=== PATIENT | female | born 1975 | race Caucasian/White ===

== ENCOUNTER 2019-01-07 14:00 | Emergency (ER) | payer OTHER, MEDICAID, SELFPAY ==
[2019-01-07 14:13] VITALS: BP 138/73; PULSE 93; RESP 18; TEMP 36.8; O2SAT 93; BMI 25.3
--- NOTE | 2019-01-07 14:15 | DI.CT.S_ITS ---
PROCEDURE: CT HEAD/BRAIN WO CON INDICATIONS: seizure x 2, seizure history, bruising forehead TECHNIQUE: Noncontrast 4.5 mm thick angled axial sections acquired from the foramen magnum to the vertex, with coronal and sagittal reformats. For radiation dose reduction, the following was used: automated exposure control, adjustment of mA and/or kV according to patient size. COMPARISON: None. FINDINGS: Image quality: Excellent. CSF spaces: Basal cisterns are patent. No extra-axial fluid collections. Ventricles are normal in size and shape. Brain: No midline shift. No intracranial masses or hemorrhage. Marie-white matter interface is normal. Skull and face: Calvarium and visualized facial bones are intact, without suspicious lesions. Sinuses: Visualized sinuses and mastoids are clear. IMPRESSION: No CT evidence of acute intracranial process. Dictated by: Rohini Hernandez M.D. on 01/07/2019 at 15:09 Approved by: Rohini Hernandez M.D. on 01/07/2019 at 15:13
--- NOTE | 2019-01-07 14:18 | ED.SEIZURE ---
HPI - Seizure <Fabiana Lloyd, DO - Last Filed: 01/07/19 16:07> General Chief Complaint: Seizure Stated Complaint: Seizure Time Seen by Provider: 01/07/19 14:14 Source: patient and family (daughter (age 25)) Mode of arrival: ambulatory Limitations: no limitations History of Present Illness HPI Narrative: This is a 43-year-old female comes to the emergency department with complaint of seizure. Patient states that she was weaning down her Keppra. Yesterday was her last dose. Plan was to stop completely because she has not had seizures in many years. Patient states she has not even see neurologist for several years. She started having seizures at the age of 16 they have not found any specific cause. Patient is following with Dr. Davila her primary care. She used to see Dr. Castillo in a [place] for her seizures but no longer sees him. Patient states she had 1 seizure at home earlier today that she felt coming on. They went to [employer] here in town, she was in the bathroom her daughter heard her yell and it took a moment to get the door unlocked patient was lying on the floor at that point. She has some bruising on her forehead and tongue from this morning from the 1st seizure. She is also complaining of some pain in her right shoulder. It hurts for to completely move her arm but she can move it through full range of motion. She is not having any pain in her neck currently. She feels sort of groggy. The patient did have urinary incontinence. She does not have any chest pain no shortness of breath, no nausea no vomiting no other GI symptoms. Patient states she does not have any other medical issues. Related Data Home Medications Medication Instructions Recorded Confirmed cholecalciferol (vitamin D3) 1 tab PO QDAY #0 10/13/17 11/30/18 [Vitamin D3] ferrous sulfate [Feosol] 325 mg PO #0 10/13/17 11/30/18 folic acid 0.4 mg PO QDAY #0 10/13/17 11/30/18 vit-iron fum-folic ac 1 cap PO QDAY #0 10/13/17 11/30/18 [Mynatal] Previous Rx's Medication Instructions Recorded levetiracetam [Keppra] 500 mg PO BID #30 tab 01/07/19 Allergies Allergy/AdvReac Type Severity Reaction Status Date / Time No Known Drug Allergies Allergy Verified 11/30/18 15:22 Review of Systems <Fabiana Lloyd DO - Last Filed: 01/07/19 16:07> Review of Systems ROS Unobtainable: All systems reviewed & are unremarkable except as noted in HPI and below Constitutional Denies chills, Denies fever(s), Denies lethargy, Denies weakness and Reports other (head injury) ENT Ears, Nose, Mouth, and Throat: Denies neck pain and Reports other (bit tongue, bruising) Cardiovascular Denies chest pain, Denies irregular heart rhythm, Denies lightheadedness, Denies palpitations, Denies dyspnea, Denies dyspnea on exertion and Denies orthopnea Respiratory Denies cough, Denies dyspnea, Denies dyspnea on exertion and Denies wheezing Gastrointestinal Gastrointestinal: Denies abdominal pain, Denies change in bowel habits, Denies fecal incontinence, Denies diarrhea, Denies nausea and Denies vomiting Genitourinary Denies hematuria, Denies dysuria, Denies flank pain, Reports urinary incontinence and Denies urinary urgency Musculoskeletal Reports as per HPI, Denies back pain, Reports arthralgias (right shoulder pain), Reports limited range of motion and Denies neck pain Integumentary/Breasts Denies rash and Denies unusual bruising Neurologic Reports as per HPI, Reports seizure-like activity (x2 today) and Denies weakness Endocrine Denies palpitations Allergic/Immunologic Denies wheezing PFSH <Fabiana Lloyd DO - Last Filed: 01/07/19 16:07> Medical History Seizures (Chronic) Surgical History Status post section (Resolved 08/18/17) Status post tubal ligation (Resolved 08/18/17) Family History Mother Morbid obesity Social History Smoking Status: Never smoker Family History Mother Morbid obesity Social History Smoking Status: Never smoker substance use type: does not use Exam <Fabiana Lloyd DO - Last Filed: 01/07/19 16:07> Narrative Exam Narrative: GEN: well nourished, well appearing female, alert and oriented x 3, patient appears to be in mild distress. Patient is very slightly groggy. She answers questions in their entirety without issue. HEENT: Patient has some mild ecchymosis on the anterior forehead, pupils are equal round reactive to light, extraocular movements are intact, nares are clear, TMs are clear with no fluid, there is no conjunctival pallor. Throat is clear without any exudates, erythema, tonsillar enlargement or uvular deviation, patient has some bruising but no open laceration on the right and and side of the tongue. HEART: Regular rate and rhythm without murmur, clicks, rubs. No carotid bruits, pulses are equal in upper and lower extremities LUNGS:Lungs clear to auscultation, no wheezes, rales, crackles, chest moves symmetrically ABD:bowel sounds normal, soft, non-tender, no guarding, rebound, rigidity, no masses noted, no hepatosplenomegaly :No CVA tenderness MSCL: Non-tender, no muscle atrophy, muscles strength 5/5 upper and lower extremities, full range of motion, gait not tested at this time. NEURO:CN 2-12 intact, sensation normal, reflexes 2/4 upper and lower extremities. Initial Vital Signs Initial Vital Signs: Vital Signs Temperature 98.2 F 01/07/19 14:13 Pulse Rate 93 H 01/07/19 14:13 Respiratory Rate 18 01/07/19 14:13 Blood Pressure 138/73 01/07/19 14:13 Pulse Oximetry 93 01/07/19 14:13 <Huey Faulkner DO - Last Filed: 01/07/19 19:41> Initial Vital Signs Initial Vital Signs: Vital Signs Temperature 98.2 F 01/07/19 14:13 Pulse Rate 93 H 01/07/19 14:13 Respiratory Rate 18 01/07/19 14:13 Blood Pressure 138/73 01/07/19 14:13 Pulse Oximetry 93 01/07/19 14:13 Scores <Fabiana Lloyd DO - Last Filed: 01/07/19 16:07> GCS [place] coma scale eye opening: Spontaneous [place] coma scale verbal response: Orientated [place] coma scale motor response: Obey commands [place] coma scale total score: 15 Course <Faibana Lloyd DO - Last Filed: 01/07/19 16:07> Orders Ordered: ED Orders 01/07/19 14:15 CT head/brain wo con Stat 01/07/19 14:40 XR shoulder RT min 2V Stat 01/07/19 15:15 Basic Metabolic Panel Stat Complete Blood Count AUTO DIFF Stat Ethanol (ETOH) Stat Magnesium Stat Prolactin Stat Discontinued Medications Sodium Chloride (Normal Saline 0.9%) 1,000 mls @ 1,000 mls/hr IV BOLUS ONE Stop: 01/07/19 15:13 Last Infusion: 01/07/19 16:08 Dose: 0 mls/hr Admin: 01/07/19 15:09 Dose: 1,000 mls/hr Levetiracetam 1,500 mg/ Sodium (Chloride) 115 mls @ 460 mls/hr IV NOW ONE Stop: 01/07/19 14:15 Last Infusion: 01/07/19 15:35 Dose: 0 mls/hr Admin: 01/07/19 15:08 Dose: 460 mls/hr Ondansetron HCl (Zofran) 4 mg IV NOW ONE Stop: 01/07/19 15:35 Last Admin: 01/07/19 15:35 Dose: 4 mg Ondansetron HCl (Zofran) 4 mg IV NOW ONE Stop: 01/07/19 15:35 Last Admin: 01/07/19 15:44 Dose: Not Given Vital Signs - 8 hr 01/07/19 14:13 01/07/19 15:25 01/07/19 16:32 Temperature 98.2 F Pulse Rate 93 H 82 77 Respiratory Rate 18 16 14 Blood Pressure 138/73 Blood Pressure [Right Arm] 120/68 114/60 Pulse Oximetry 93 97 95 01/07/19 17:12 Temperature Pulse Rate 84 Respiratory Rate 14 Blood Pressure 114/60 Blood Pressure [Right Arm] Pulse Oximetry 96 <Huey Faulkner, DO - Last Filed: 01/07/19 19:41> Orders Ordered: ED Orders 01/07/19 14:15 CT head/brain wo con Stat 01/07/19 14:40 XR shoulder RT min 2V Stat 01/07/19 15:15 Basic Metabolic Panel Stat Complete Blood Count AUTO DIFF Stat Ethanol (ETOH) Stat Magnesium Stat Prolactin Stat Discontinued Medications Sodium Chloride (Normal Saline 0.9%) 1,000 mls @ 1,000 mls/hr IV BOLUS ONE Stop: 01/07/19 15:13 Last Infusion: 01/07/19 16:08 Dose: 0 mls/hr Admin: 01/07/19 15:09 Dose: 1,000 mls/hr Levetiracetam 1,500 mg/ Sodium (Chloride) 115 mls @ 460 mls/hr IV NOW ONE Stop: 01/07/19 14:15 Last Infusion: 01/07/19 15:35 Dose: 0 mls/hr Admin: 01/07/19 15:08 Dose: 460 mls/hr Ondansetron HCl (Zofran) 4 mg IV NOW ONE Stop: 01/07/19 15:35 Last Admin: 01/07/19 15:35 Dose: 4 mg Ondansetron HCl (Zofran) 4 mg IV NOW ONE Stop: 01/07/19 15:35 Last Admin: 01/07/19 15:44 Dose: Not Given Vital Signs - 8 hr 01/07/19 14:13 01/07/19 15:25 01/07/19 16:32 Temperature 98.2 F Pulse Rate 93 H 82 77 Respiratory Rate 18 16 14 Blood Pressure 138/73 Blood Pressure [Right Arm] 120/68 114/60 Pulse Oximetry 93 97 95 01/07/19 17:12 Temperature Pulse Rate 84 Respiratory Rate 14 Blood Pressure 114/60 Blood Pressure [Right Arm] Pulse Oximetry 96 MDM - Seizure <Fabiana Lloyd, - Last Filed: 01/07/19 16:07> Lab Data Result diagrams: 01/07/19 15:15 01/07/19 15:15 Lab Results 01/07/19 01/07/19 01/07/19 Range/Units 15:15 15:15 15:15 WBC 13.8 H (4.5-11.0) X10^3/uL RBC 4.24 (4.0-5.2) X10^6/uL Hgb 13.1 (12.0-16.0) g/dL Hct 39.6 (36-46) % MCV 93.6 (80-100) fL MCH 30.9 (26-34) PG MCHC 33.0 (30-36) % RDW 13.4 (11.6-14.8) % Plt Count 292 (150-400) X10^3/uL Neut % (Auto) 88.4 H (50-75) % Lymph % (Auto) 6.4 L (25-40) % [place] % (Auto) 4.6 (3-14) % Eos % (Auto) 0.1 L (2-4) % Baso % (Auto) 0.5 (0-2) % Neut # (Auto) 51745 H (8598-2704) /uL Lymph # (Auto) 900 L (1292-2031) /uL [place] # (Auto) 600 (0-900) /uL Eos # (Auto) 0 (0-450) /uL Baso # (Auto) 100 (0-100) /uL Sodium 138 (137-145) mmol/L Potassium 4.3 (3.4-5.1) mmol/L Chloride 105 (98-107) mmol/L Carbon Dioxide 23 (22-32) mmol/L BUN 13 (7-17) mg/dL Creatinine 0.80 (0.52-1.04) mg/dL Estimated GFR > 60.0 (>60) mL/min BUN/Creatinine Ratio 16.3 (6-22) Glucose 117 H (70-100) mg/dL Calcium 8.8 (8.4-10.2) mg/dL Magnesium 2.0 (1.6-2.3) mg/dL Prolactin 36.4 H (3.0-18.6) ng/mL Ethyl Alcohol < 10 mg/dL MDM Narrative Medical decision making narrative: Patient had 2 episodes of seizure activity here. She did not take any Keppra today as she has stopped her Keppra in the last 24 hr. Plan to load her with Keppra here in the emergency department 1500 mg. Patient on seizure precautions. She does have multiple bruises on her forehead so will do a CT of her head at this time as well as basic lab work. Patient labs pending, patient has not had further seizures in the department at this time. Patient signed out to Dr. Faulkner for final disposition while awaiting lab work. <Huey Faulkner DO - Last Filed: 01/07/19 19:41> Lab Data Lab Results 01/07/19 01/07/19 01/07/19 Range/Units 15:15 15:15 15:15 WBC 13.8 H (4.5-11.0) X10^3/uL RBC 4.24 (4.0-5.2) X10^6/uL Hgb 13.1 (12.0-16.0) g/dL Hct 39.6 (36-46) % MCV 93.6 (80-100) fL MCH 30.9 (26-34) PG MCHC 33.0 (30-36) % RDW 13.4 (11.6-14.8) % Plt Count 292 (150-400) X10^3/uL Neut % (Auto) 88.4 H (50-75) % Lymph % (Auto) 6.4 L (25-40) % [place] % (Auto) 4.6 (3-14) % Eos % (Auto) 0.1 L (2-4) % Baso % (Auto) 0.5 (0-2) % Neut # (Auto) 10639 H (9743-0506) /uL Lymph # (Auto) 900 L (7194-0284) /uL [place] # (Auto) 600 (0-900) /uL Eos # (Auto) 0 (0-450) /uL Baso # (Auto) 100 (0-100) /uL Sodium 138 (137-145) mmol/L Potassium 4.3 (3.4-5.1) mmol/L Chloride 105 (98-107) mmol/L Carbon Dioxide 23 (22-32) mmol/L BUN 13 (7-17) mg/dL Creatinine 0.80 (0.52-1.04) mg/dL Estimated GFR > 60.0 (>60) mL/min BUN/Creatinine Ratio 16.3 (6-22) Glucose 117 H (70-100) mg/dL Calcium 8.8 (8.4-10.2) mg/dL Magnesium 2.0 (1.6-2.3) mg/dL Prolactin 36.4 H (3.0-18.6) ng/mL Ethyl Alcohol < 10 mg/dL Discharge Plan Departure Patient Disposition: Home Clinical Impression: Seizure Discharge Date/Time: 01/07/19 17:13 Interventions: ED Discharge Assessment Last Done: 01/07/19 17:12 Instructions: DI for Seizure Disorder -- Adult Activity Restrictions/Additional Instructions: *You have been diagnosed with [ seizure ] *What to do: *Take medications as directed: Please resume your most recent dosing regimen, your prescription has been electronically transmitted to [facility] at your request *Follow up with your primary care provider in 2-3 days, call for an appointment. Let them know you were seen in the Emergency Department and that we ask that you be seen in follow up *Return to ER if you should have any new, worsening or concerning symptoms Prescriptions: New levetiracetam [Keppra] 500 mg tablet 500 mg PO BID Qty: 30 RF: 0 No Action folic acid 0.4 MG tablet 0.4 mg PO QDAY Qty: 0 RF: 0 ferrous sulfate [Feosol] 325 MG tablet 325 mg PO Qty: 0 RF: 0 vit-iron fum-folic ac [Mynatal] 1 EACH capsule 1 cap PO QDAY Qty: 0 RF: 0 cholecalciferol (vitamin D3) [Vitamin D3] 2,000 UNIT tablet 1 tab PO QDAY Qty: 0 RF: 0 Referrals: Yariel Abraham MD [Primary Care Provider] -
--- NOTE | 2019-01-07 14:26 | ED_ITS ---
HPI - Seizure <Fabiana Lloyd, DO - Last Filed: 01/07/19 16:07> General Chief Complaint: Seizure Stated Complaint: Seizure Time Seen by Provider: 01/07/19 14:14 Source: patient and family (daughter (age 25)) Mode of arrival: ambulatory Limitations: no limitations History of Present Illness HPI Narrative: This is a 43-year-old female comes to the emergency department with complaint of seizure. Patient states that she was weaning down her Keppra. Yesterday was her last dose. Plan was to stop completely because she has not had seizures in many years. Patient states she has not even see neurologist for several years. She started having seizures at the age of 16 they have not found any specific cause. Patient is following with Dr. Davila her primary care. She used to see Dr. Castillo in a [place] for her seizures but no longer sees him. Patient states she had 1 seizure at home earlier today that she felt coming on. They went to [employer] here in town, she was in the bathroom her daughter heard her yell and it took a moment to get the door unlocked patient was lying on the floor at that point. She has some bruising on her forehead and tongue from this morning from the 1st seizure. She is also complaining of some pain in her right shoulder. It hurts for to completely move her arm but she can move it through full range of motion. She is not having any pain in her neck currently. She feels sort of groggy. The patient did have urinary incontinence. She does not have any chest pain no shortness of breath, no nausea no vomiting no other GI symptoms. Patient states she does not have any other medical issues. Related Data Home Medications Medication Instructions Recorded Confirmed cholecalciferol (vitamin D3) 1 tab PO QDAY #0 10/13/17 11/30/18 [Vitamin D3] ferrous sulfate [Feosol] 325 mg PO #0 10/13/17 11/30/18 folic acid 0.4 mg PO QDAY #0 10/13/17 11/30/18 vit-iron fum-folic ac 1 cap PO QDAY #0 10/13/17 11/30/18 [Mynatal] Previous Rx's Medication Instructions Recorded levetiracetam [Keppra] 500 mg PO BID #30 tab 01/07/19 Allergies Allergy/AdvReac Type Severity Reaction Status Date / Time No Known Drug Allergies Allergy Verified 11/30/18 15:22 Review of Systems <Fabiana Lloyd DO - Last Filed: 01/07/19 16:07> Review of Systems ROS Unobtainable: All systems reviewed & are unremarkable except as noted in HPI and below Constitutional Denies chills, Denies fever(s), Denies lethargy, Denies weakness and Reports other (head injury) ENT Ears, Nose, Mouth, and Throat: Denies neck pain and Reports other (bit tongue, bruising) Cardiovascular Denies chest pain, Denies irregular heart rhythm, Denies lightheadedness, Denies palpitations, Denies dyspnea, Denies dyspnea on exertion and Denies orthopnea Respiratory Denies cough, Denies dyspnea, Denies dyspnea on exertion and Denies wheezing Gastrointestinal Gastrointestinal: Denies abdominal pain, Denies change in bowel habits, Denies fecal incontinence, Denies diarrhea, Denies nausea and Denies vomiting Genitourinary Denies hematuria, Denies dysuria, Denies flank pain, Reports urinary incontinence and Denies urinary urgency Musculoskeletal Reports as per HPI, Denies back pain, Reports arthralgias (right shoulder pain), Reports limited range of motion and Denies neck pain Integumentary/Breasts Denies rash and Denies unusual bruising Neurologic Reports as per HPI, Reports seizure-like activity (x2 today) and Denies weakness Endocrine Denies palpitations Allergic/Immunologic Denies wheezing PFSH <Fabiana Lloyd DO - Last Filed: 01/07/19 16:07> Medical History Seizures (Chronic) Surgical History Status post section (Resolved 08/18/17) Status post tubal ligation (Resolved 08/18/17) Family History Mother Morbid obesity Social History Smoking Status: Never smoker Family History Mother Morbid obesity Social History Smoking Status: Never smoker substance use type: does not use Exam <Fabiana Lloyd DO - Last Filed: 01/07/19 16:07> Narrative Exam Narrative: GEN: well nourished, well appearing female, alert and oriented x 3, patient appears to be in mild distress. Patient is very slightly groggy. She answers questions in their entirety without issue. HEENT: Patient has some mild ecchymosis on the anterior forehead, pupils are equal round reactive to light, extraocular movements are intact, nares are clear, TMs are clear with no fluid, there is no conjunctival pallor. Throat is clear without any exudates, erythema, tonsillar enlargement or uvular deviation, patient has some bruising but no open laceration on the right and and side of the tongue. HEART: Regular rate and rhythm without murmur, clicks, rubs. No carotid bruits, pulses are equal in upper and lower extremities LUNGS:Lungs clear to auscultation, no wheezes, rales, crackles, chest moves symmetrically ABD:bowel sounds normal, soft, non-tender, no guarding, rebound, rigidity, no masses noted, no hepatosplenomegaly :No CVA tenderness MSCL: Non-tender, no muscle atrophy, muscles strength 5/5 upper and lower extremities, full range of motion, gait not tested at this time. NEURO:CN 2-12 intact, sensation normal, reflexes 2/4 upper and lower extremities. Initial Vital Signs Initial Vital Signs: Vital Signs Temperature 98.2 F 01/07/19 14:13 Pulse Rate 93 H 01/07/19 14:13 Respiratory Rate 18 01/07/19 14:13 Blood Pressure 138/73 01/07/19 14:13 Pulse Oximetry 93 01/07/19 14:13 <Huey Faulkner DO - Last Filed: 01/07/19 19:41> Initial Vital Signs Initial Vital Signs: Vital Signs Temperature 98.2 F 01/07/19 14:13 Pulse Rate 93 H 01/07/19 14:13 Respiratory Rate 18 01/07/19 14:13 Blood Pressure 138/73 01/07/19 14:13 Pulse Oximetry 93 01/07/19 14:13 Scores <Fabiana Lloyd DO - Last Filed: 01/07/19 16:07> GCS [place] coma scale eye opening: Spontaneous [place] coma scale verbal response: Orientated [place] coma scale motor response: Obey commands [place] coma scale total score: 15 Course <Fabiana Lloyd DO - Last Filed: 01/07/19 16:07> Orders Ordered: ED Orders 01/07/19 14:15 CT head/brain wo con Stat 01/07/19 14:40 XR shoulder RT min 2V Stat 01/07/19 15:15 Basic Metabolic Panel Stat Complete Blood Count AUTO DIFF Stat Ethanol (ETOH) Stat Magnesium Stat Prolactin Stat Discontinued Medications Sodium Chloride (Normal Saline 0.9%) 1,000 mls @ 1,000 mls/hr IV BOLUS ONE Stop: 01/07/19 15:13 Last Infusion: 01/07/19 16:08 Dose: 0 mls/hr Admin: 01/07/19 15:09 Dose: 1,000 mls/hr Levetiracetam 1,500 mg/ Sodium (Chloride) 115 mls @ 460 mls/hr IV NOW ONE Stop: 01/07/19 14:15 Last Infusion: 01/07/19 15:35 Dose: 0 mls/hr Admin: 01/07/19 15:08 Dose: 460 mls/hr Ondansetron HCl (Zofran) 4 mg IV NOW ONE Stop: 01/07/19 15:35 Last Admin: 01/07/19 15:35 Dose: 4 mg Ondansetron HCl (Zofran) 4 mg IV NOW ONE Stop: 01/07/19 15:35 Last Admin: 01/07/19 15:44 Dose: Not Given Vital Signs - 8 hr 01/07/19 14:13 01/07/19 15:25 01/07/19 16:32 Temperature 98.2 F Pulse Rate 93 H 82 77 Respiratory Rate 18 16 14 Blood Pressure 138/73 Blood Pressure [Right Arm] 120/68 114/60 Pulse Oximetry 93 97 95 01/07/19 17:12 Temperature Pulse Rate 84 Respiratory Rate 14 Blood Pressure 114/60 Blood Pressure [Right Arm] Pulse Oximetry 96 <Huey Faulkner, DO - Last Filed: 01/07/19 19:41> Orders Ordered: ED Orders 01/07/19 14:15 CT head/brain wo con Stat 01/07/19 14:40 XR shoulder RT min 2V Stat 01/07/19 15:15 Basic Metabolic Panel Stat Complete Blood Count AUTO DIFF Stat Ethanol (ETOH) Stat Magnesium Stat Prolactin Stat Discontinued Medications Sodium Chloride (Normal Saline 0.9%) 1,000 mls @ 1,000 mls/hr IV BOLUS ONE Stop: 01/07/19 15:13 Last Infusion: 01/07/19 16:08 Dose: 0 mls/hr Admin: 01/07/19 15:09 Dose: 1,000 mls/hr Levetiracetam 1,500 mg/ Sodium (Chloride) 115 mls @ 460 mls/hr IV NOW ONE Stop: 01/07/19 14:15 Last Infusion: 01/07/19 15:35 Dose: 0 mls/hr Admin: 01/07/19 15:08 Dose: 460 mls/hr Ondansetron HCl (Zofran) 4 mg IV NOW ONE Stop: 01/07/19 15:35 Last Admin: 01/07/19 15:35 Dose: 4 mg Ondansetron HCl (Zofran) 4 mg IV NOW ONE Stop: 01/07/19 15:35 Last Admin: 01/07/19 15:44 Dose: Not Given Vital Signs - 8 hr 01/07/19 14:13 01/07/19 15:25 01/07/19 16:32 Temperature 98.2 F Pulse Rate 93 H 82 77 Respiratory Rate 18 16 14 Blood Pressure 138/73 Blood Pressure [Right Arm] 120/68 114/60 Pulse Oximetry 93 97 95 01/07/19 17:12 Temperature Pulse Rate 84 Respiratory Rate 14 Blood Pressure 114/60 Blood Pressure [Right Arm] Pulse Oximetry 96 MDM - Seizure <Fabiana Lloyd, - Last Filed: 01/07/19 16:07> Lab Data Result diagrams: 01/07/19 15:15 01/07/19 15:15 Lab Results 01/07/19 01/07/19 01/07/19 Range/Units 15:15 15:15 15:15 WBC 13.8 H (4.5-11.0) X10^3/uL RBC 4.24 (4.0-5.2) X10^6/uL Hgb 13.1 (12.0-16.0) g/dL Hct 39.6 (36-46) % MCV 93.6 (80-100) fL MCH 30.9 (26-34) PG MCHC 33.0 (30-36) % RDW 13.4 (11.6-14.8) % Plt Count 292 (150-400) X10^3/uL Neut % (Auto) 88.4 H (50-75) % Lymph % (Auto) 6.4 L (25-40) % [place] % (Auto) 4.6 (3-14) % Eos % (Auto) 0.1 L (2-4) % Baso % (Auto) 0.5 (0-2) % Neut # (Auto) 82347 H (2011-6111) /uL Lymph # (Auto) 900 L (0645-0213) /uL [place] # (Auto) 600 (0-900) /uL Eos # (Auto) 0 (0-450) /uL Baso # (Auto) 100 (0-100) /uL Sodium 138 (137-145) mmol/L Potassium 4.3 (3.4-5.1) mmol/L Chloride 105 (98-107) mmol/L Carbon Dioxide 23 (22-32) mmol/L BUN 13 (7-17) mg/dL Creatinine 0.80 (0.52-1.04) mg/dL Estimated GFR > 60.0 (>60) mL/min BUN/Creatinine Ratio 16.3 (6-22) Glucose 117 H (70-100) mg/dL Calcium 8.8 (8.4-10.2) mg/dL Magnesium 2.0 (1.6-2.3) mg/dL Prolactin 36.4 H (3.0-18.6) ng/mL Ethyl Alcohol < 10 mg/dL MDM Narrative Medical decision making narrative: Patient had 2 episodes of seizure activity here. She did not take any Keppra today as she has stopped her Keppra in the last 24 hr. Plan to load her with Keppra here in the emergency department 1500 mg. Patient on seizure precautions. She does have multiple bruises on her forehead so will do a CT of her head at this time as well as basic lab work. Patient labs pending, patient has not had further seizures in the department at this time. Patient signed out to Dr. Faulkner for final disposition while awaiting lab work. <Huey Faulkner DO - Last Filed: 01/07/19 19:41> Lab Data Lab Results 01/07/19 01/07/19 01/07/19 Range/Units 15:15 15:15 15:15 WBC 13.8 H (4.5-11.0) X10^3/uL RBC 4.24 (4.0-5.2) X10^6/uL Hgb 13.1 (12.0-16.0) g/dL Hct 39.6 (36-46) % MCV 93.6 (80-100) fL MCH 30.9 (26-34) PG MCHC 33.0 (30-36) % RDW 13.4 (11.6-14.8) % Plt Count 292 (150-400) X10^3/uL Neut % (Auto) 88.4 H (50-75) % Lymph % (Auto) 6.4 L (25-40) % [place] % (Auto) 4.6 (3-14) % Eos % (Auto) 0.1 L (2-4) % Baso % (Auto) 0.5 (0-2) % Neut # (Auto) 03066 H (0843-9414) /uL Lymph # (Auto) 900 L (4351-4391) /uL [place] # (Auto) 600 (0-900) /uL Eos # (Auto) 0 (0-450) /uL Baso # (Auto) 100 (0-100) /uL Sodium 138 (137-145) mmol/L Potassium 4.3 (3.4-5.1) mmol/L Chloride 105 (98-107) mmol/L Carbon Dioxide 23 (22-32) mmol/L BUN 13 (7-17) mg/dL Creatinine 0.80 (0.52-1.04) mg/dL Estimated GFR > 60.0 (>60) mL/min BUN/Creatinine Ratio 16.3 (6-22) Glucose 117 H (70-100) mg/dL Calcium 8.8 (8.4-10.2) mg/dL Magnesium 2.0 (1.6-2.3) mg/dL Prolactin 36.4 H (3.0-18.6) ng/mL Ethyl Alcohol < 10 mg/dL Discharge Plan Departure Patient Disposition: Home Clinical Impression: Seizure Discharge Date/Time: 01/07/19 17:13 Interventions: ED Discharge Assessment Last Done: 01/07/19 17:12 Instructions: DI for Seizure Disorder -- Adult Activity Restrictions/Additional Instructions: *You have been diagnosed with [ seizure ] *What to do: *Take medications as directed: Please resume your most recent dosing regimen, your prescription has been electronically transmitted to [facility] at your request *Follow up with your primary care provider in 2-3 days, call for an appointment. Let them know you were seen in the Emergency Department and that we ask that you be seen in follow up *Return to ER if you should have any new, worsening or concerning symptoms Prescriptions: New levetiracetam [Keppra] 500 mg tablet 500 mg PO BID Qty: 30 RF: 0 No Action folic acid 0.4 MG tablet 0.4 mg PO QDAY Qty: 0 RF: 0 ferrous sulfate [Feosol] 325 MG tablet 325 mg PO Qty: 0 RF: 0 vit-iron fum-folic ac [Mynatal] 1 EACH capsule 1 cap PO QDAY Qty: 0 RF: 0 cholecalciferol (vitamin D3) [Vitamin D3] 2,000 UNIT tablet 1 tab PO QDAY Qty: 0 RF: 0 Referrals: Yariel Abraham MD [Primary Care Provider] -
--- NOTE | 2019-01-07 14:40 | DI.RAD.S_ITS ---
PROCEDURE: XR SHOULDER RT MIN 2V INDICATIONS: injury, pain TECHNIQUE: 3 views of the shoulder were acquired. COMPARISON: None. FINDINGS: Bones: No fractures or dislocations. No suspicious bony lesions. Visualized ribs appear intact. Soft tissues: No suspicious soft tissue calcifications. IMPRESSION: Intact right shoulder Dictated by: Rohini Hernandez M.D. on 01/07/2019 at 15:15 Approved by: Rohini Hernandez M.D. on 01/07/2019 at 15:16
[2019-01-07] MEDS: levETIRAcetam 1,500 MG in SODIUM CHLORIDE 0.9% 100 ML 460 ML IV (15:08)
[2019-01-07] MEDS: SODIUM CHLORIDE 0.9% 1,000 ML 1000 ML IV (15:09)
[2019-01-07 15:25] VITALS: BP 120/68; PULSE 82; RESP 16; O2SAT 97
[2019-01-07 15:33] LABS: Add Manual Diff / Slide Review NO; Basophils Absolute Auto 100 /uL (0-100); Basophils Percent Auto 0.5 % (0-2); Eosinophils Absolute Auto 0 /uL (0-450); Eosinophils Percent Auto 0.1 % (2-4); Hematocrit 39.6 % (36-46); Hemoglobin 13.1 g/dL (12.0-16.0); Lymphocytes Absolute Auto 900 /uL (1100-4500); Lymphocytes Percent Auto 6.4 % (25-40); Mean Corpuscular Hemoglobin 30.9 PG (26-34); Mean Corpuscular Volume 93.6 fL (80-100); Monocytes Absolute Auto 600 /uL (0-900); Monocytes Percent Auto 4.6 % (3-14); Neutrophils Absolute Auto 12200 /uL (1500-7000); Neutrophils Percent Auto 88.4 % (50-75); Platelet Count 292 X10^3/uL (150-400); Red Blood Cell Count 4.24 X10^6/uL (4.0-5.2); Red Cell Distribution Width 13.4 % (11.6-14.8); White Blood Cell Count 13.8 X10^3/uL (4.5-11.0)
[2019-01-07 15:34] LABS: Ethanol (ETOH) < 10 mg/dL
[2019-01-07 15:35] LABS: BUN Creatinine Ratio 16.3 (6-22); Blood Urea Nitrogen 13 mg/dL (7-17); Calcium 8.8 mg/dL (8.4-10.2); Carbon Dioxide 23 mmol/L (22-32); Chloride 105 mmol/L (98-107); Estimated Glomerular Filt Rate > 60.0 mL/min (>60); Glucose 117 mg/dL (70-100); HEMOLYSIS < 15 (0-50); Potassium 4.3 mmol/L (3.4-5.1); Sodium 138 mmol/L (137-145)
[2019-01-07] MEDS: ONDANSETRON 4 MG/2 ML INJ IV (15:35)
[2019-01-07 15:52] LABS: Prolactin 36.4 ng/mL (3.0-18.6)
--- NOTE | 2019-01-07 15:53 | PC.NURSE ---
States nausea has improved. Informed of keppra amount infused as asked
[2019-01-07 16:32] VITALS: BP 114/60; PULSE 77; RESP 14; O2SAT 95
[2019-01-07 17:12] VITALS: BP 114/60; PULSE 84; RESP 14; O2SAT 96
== END 2019-01-07 17:13 | disposition home or self-care (01) ==
PROVIDERS: Emergency Medicine; Emergency Provider Emergency Medicine; PCP Student in an Organized Health Care Education/Training Program
DX: R56.9 Unspecified convulsions (principal)
CPT/HCPCS: 36415; 70450; 73030; 80048; 80320; 83735; 84146; 85025; 96361; 96365; 96375; 99284; J1953; J2405

== ENCOUNTER → 2020-04-19 17:34 | Outpatient (CLI) | payer OTHER, MEDICAID, SELFPAY ==
--- NOTE | 2020-04-19 | DI.MRI.S_ITS ---
PROCEDURE: MR ANKLE RT WO CON INDICATIONS: Pain in right foot TECHNIQUE: Noncontrast sagittal T1 spin echo and T2 fast spin echo with fat saturation, axial proton density fast spin echo and T2 fast spin echo with fat saturation, coronal T1 spin echo and T2 fast spin echo with fat saturation through the ankle/hindfoot. COMPARISON: None. FINDINGS: Image quality: Excellent. Bones and joints: No fracture or dislocation. No hindfoot coalitions. No osteochondral injuries of the talar dome. No pathologic joint effusions. Well-defined plantar calcaneal enthesophyte is seen. Mild edema is noted involving plantar calcaneus at plantar aponeurosis insertion. No fracture line is noted. No cortical disruption. Medial structures: The posterior tibialis, flexor digitorum longus, and flexor hallucis longus tendons are intact. The posterior tibial neurovascular bundle appears normal within the tarsal tunnel, without extrinsic mass effect. The deep layer (anterior and posterior tibiotalar ligaments) and superficial layer (tibionavicular, tibiospring, and tibiocalcaneal ligaments) of the deltoid ligament appear normal. The spring ligament components (superomedial calcaneonavicular, medioplantar oblique calcaneonavicular, and inferoplantar longitudinal ligaments) are intact. Lateral structures: The anterior talofibular, calcaneofibular, and posterior talofibular ligaments appear intact. More superiorly, the anterior and posterior tibiofibular ligaments appear intact, as is the intermalleolar ligament. The tibiofibular syndesmosis is normal in width at 2 mm or less. The peroneus longus and brevis tendons demonstrate normal location and morphology. Adjacent bony peroneal tubercle and retrotrochlear prominence are normal in size. The sinus tarsi demonstrates normal fatty signal, without edema, fibrosis, or cyst formation. Visualized sinus tarsi components (cervical ligament, interosseous talocalcaneal ligament, roots of the inferior extensor retinaculum) appear normal. The calcaneonavicular and calcaneocuboid components of the bifurcate ligament appear intact. The dorsal calcaneocuboid ligament appears intact. Anterior structures: The tibialis anterior, extensor hallucis longus, and extensor digitorum longus tendons appear intact. The dorsal talonavicular ligament appears intact. Posterior and plantar structures: Achilles tendon is intact. Medial and lateral bands of the plantar fascia are of taken at their insertions on plantar calcaneus suggestive of low to moderate grade plantar fasciitis. No full-thickness plantar fascial rupture. No abductor digiti quinti muscle atrophy to suggest Jackson neuropathy. IMPRESSION: 1. Well-defined plantar calcaneal enthesophyte with mild edema in plantar calcaneus and again the plantar fascia at its calcaneal insertion with mild surrounding soft tissue edema. Finding is suggestive of multiple moderately plantar fasciitis. 2. Rest of ankle tendons and ligaments are intact. 3. No other area of abnormal marrow signal. No fracture or dislocation. Dictated by: Dimitri Osborn M.D. on 04/22/2020 at 8:25 Approved by: Dimitri Obsorn M.D. on 04/22/2020 at 8:38
== END ==
PROVIDERS: PCP Family Medicine; Referring Provider Orthopaedic Surgery Foot and Ankle Surgery; Visit Provider Orthopaedic Surgery Foot and Ankle Surgery
DX: M79.671 Pain in right foot (principal); M77.31 Calcaneal spur, right foot
CPT/HCPCS: 73721

== ENCOUNTER → 2020-07-16 10:34 | Outpatient (CLI) | payer OTHER, MEDICAID, SELFPAY ==
[2020-07-16 11:50] LABS: Add Manual Diff / Slide Review NO; Basophils Absolute Auto 0 /uL (0-100); Basophils Percent Auto 0.5 % (0-2); Eosinophils Absolute Auto 100 /uL (0-450); Eosinophils Percent Auto 1.5 % (2-4); Hematocrit 33.9 % (36-46); Hemoglobin 11.2 g/dL (12.0-16.0); Lymphocytes Absolute Auto 2200 /uL (1100-4500); Mean Corpuscular Hemoglobin 28.1 PG (26-34); Mean Corpuscular Volume 84.9 fL (80-100); Monocytes Absolute Auto 600 /uL (0-900); Monocytes Percent Auto 6.6 % (3-14); Neutrophils Absolute Auto 5600 /uL (1500-7000); Neutrophils Percent Auto 65.4 % (50-75); Platelet Count 330 X10^3/uL (150-400); Red Blood Cell Count 3.99 X10^6/uL (4.0-5.2); Red Cell Distribution Width 16.2 % (11.6-14.8); White Blood Cell Count 8.6 X10^3/uL (4.5-11.0)
[2020-07-16 12:33] LABS: Follicle Stimulating Hormone 1.45 mIU/mL
[2020-07-16 12:38] LABS: Free T4, Direct Thyroxine 0.64 ng/dL (0.78-2.19)
[2020-07-16 12:52] LABS: Thyroid Stimulating Hormone 8.78 uIU/mL (0.47-4.68)
== END ==
PROVIDERS: PCP Family Medicine; Referring Provider Obstetrics & Gynecology; Visit Provider Obstetrics & Gynecology
DX: N92.0 Excessive and frequent menstruation with regular cycle (principal); N92.6 Irregular menstruation, unspecified
CPT/HCPCS: 36415; 83001; 84439; 84443; 85025

== ENCOUNTER → 2020-07-17 12:43 | Outpatient (CLI) | payer OTHER, MEDICAID, SELFPAY ==
[2020-07-17 13:47] LABS: Cancer Antigen 125 < 5.5 U/mL (0-35)
== END ==
PROVIDERS: PCP Family Medicine; Visit Provider Obstetrics & Gynecology
DX: N83.291 Other ovarian cyst, right side (principal)
CPT/HCPCS: 86304

== ENCOUNTER → 2020-08-22 17:39 | Outpatient (CLI) | payer OTHER, MEDICAID, SELFPAY ==
[2020-08-22 18:34] LABS: Add Manual Diff / Slide Review NO; Basophils Absolute Auto 0 /uL (0-100); Basophils Percent Auto 0.6 % (0-2); Eosinophils Absolute Auto 100 /uL (0-450); Eosinophils Percent Auto 1.3 % (2-4); Hematocrit 33.6 % (36-46); Lymphocytes Absolute Auto 2200 /uL (1100-4500); Lymphocytes Percent Auto 27.8 % (25-40); Mean Corpuscular HGB Conc 32.6 % (30-36); Mean Corpuscular Hemoglobin 28.1 PG (26-34); Monocytes Absolute Auto 600 /uL (0-900); Monocytes Percent Auto 7.2 % (3-14); Neutrophils Absolute Auto 4900 /uL (1500-7000); Neutrophils Percent Auto 63.1 % (50-75); Platelet Count 356 X10^3/uL (150-400); Red Blood Cell Count 3.91 X10^6/uL (4.0-5.2); Red Cell Distribution Width 15.8 % (11.6-14.8); White Blood Cell Count 7.8 X10^3/uL (4.5-11.0)
== END ==
PROVIDERS: PCP Family Medicine; Referring Provider Obstetrics & Gynecology; Visit Provider Obstetrics & Gynecology
DX: D64.9 Anemia, unspecified (principal)
CPT/HCPCS: 36415; 85025

== ENCOUNTER → 2020-08-22 | Outpatient (CLI) | payer OTHER, MEDICAID, SELFPAY | PROVIDERS: PCP Family Medicine; Referring Provider Internal Medicine; Visit Provider Internal Medicine | DX: Z23 Encounter for immunization (principal) | CPT/HCPCS: 90471; 90686 ==

== ENCOUNTER → 2020-08-23 13:44 | Outpatient (CLI) | payer OTHER, MEDICAID, SELFPAY ==
[2020-08-25 09:30] LABS: COVID19 Sendout Not Detected (Not Detect)
== END ==
PROVIDERS: PCP Family Medicine; Visit Provider Physician Assistant
DX: Z11.59 Encounter for screening for other viral diseases (principal)
CPT/HCPCS: 87635

== ENCOUNTER 2020-08-26 06:34 | Day surgery (SDC) | payer OTHER, MEDICAID, SELFPAY ==
[2020-08-21 08:31] VITALS: BMI 30.4
[2020-08-26] VITALS (12 sets, daily range): BP systolic 104–132; BP diastolic 67–84; PULSE 61–83; RESP 12–17; TEMP 36.6–37.5; O2SAT 96–100; BMI 29.4
--- NOTE | 2020-08-26 | PATH_ITS ---
[facility] Accession Number: [id number] . 01 Material submitted: . uterus - UTERUS, RIGHT FALLOPIAN TUBE AND LEFT FALLOPIAN TUBE . 01 Clinical history: . SDC . 02 Diagnosis: Uterus, Left Fallopian Tube, Right Fallopian Tube, Laparoscopic Supracervical Hysterectomy with Right Salpingectomy and Left Salpingectomy (Morcellated specimen, Weight 117 grams): Interval phase endometrium; negative for glandular hyperplasia, cytologic atypia, or malignancy. Myometrium involved with multiple leiomyomas (1-10 mm in greatest dimension); negative for cytologic atypia, increased mitotic activity, or necrosis. Serosa with no significant histomorphologic abnormality. Fallopian tubes x2 with scattered, benign paratubal cysts (1-2 mm in greatest dimension). . . . . MRV 08/28/2020 1136 Local . 02 Electronically signed: . Griselda Taveras MD, Pathologist NPI- [id number] . 01 Gross description: . Received in formalin, labeled uterus, left fallopian tube, right fallopian tube, and consists of a morcellated uterus weighing 117 grams and measuring 15.0 x 12.0 x 5.5 cm in aggregate. The serosa is martin-pink and smooth. A cervix is not identified. There is a scant amount of identifiable martin-pink endometrium measuring 0.1 cm in thickness. The myometrium is martin-pink and trabeculated. There are multiple martin-white whorled leiomyomata fragments ranging from 0.1 to 1.0 cm with no areas of hemorrhage, necrosis or cystic degeneration. Also received are two detached fallopian tubes measuring 3.1 cm in length by 0.5 cm in diameter and 3.5 cm in length by 0.5 cm in diameter. The serosa is pink-purple with fibrinous adhesions and multiple paratubal cysts ranging from 0.1 to 0.2 cm. Sectioning reveals a martin mucosa and a stellate lumen measuring 0.2 cm in diameter. Scratch Polisher sections are submitted. . A1-A2: manufacturer's representative endomyometrium. A3-A5: manufacturer's representative leiomyomata. A6-A7: fallopian tubes, manufacturer's representative cross-sections, bisected fimbria and margin (blue), en face. (EA:[id number]) /MRV 08/27/2020 0957 Local . 02 Pathologist provided ICD-10: N92.0, N83.209, D25.9 . 02 CPT . 556546 Performed at: 01 [facility] [address] [place] [address], [place], [place] [id number] MD aDquan Rubio MD Phone: [phone] Performed at: 02 [facility] [address] [address] [place], [place] [id number] MD Alcira Medina MD Phone: [phone]
--- NOTE | 2020-08-26 07:22 | SUR.OPER ---
Lithotomy on padded OR bed. [place] Pad Positioner under torso. Head on pillow, arms padded and tucked at sides. Legs secured in padded yellow fins stirrups.
[2020-08-26] MEDS: LACTATED RINGERS 1,000 ML 42 ML IV ×2 (07:25→09:22)
--- NOTE | 2020-08-26 07:33 | PM.PREOP ---
Pre-operative Note COVID-19 COVID-19 status: Negative Result date/Date tested (Pos, Neg/Pending): 08/23/20 Interval Note History & Physical reviewed/Exam performed by Physician: Yes Changes to H&P: No H&P completed within 30 days and has changed as indicated here:: 08/21/20
[2020-08-26] MEDS: SCOPOLAMINE 1 PATCH TOP (07:47)
[2020-08-26] MEDS: APREPITANT 40 MG CAPSULE PO (07:47)
[2020-08-26] MEDS: CEFAZOLIN 2 GM/100 ML FROZ.PIGGY IV (07:53)
[2020-08-26] MEDS: ROPIVACAINE 0.2% PF 2 MG/ML 10ML AMP 20 ML INJ (08:33)
[2020-08-26] MEDS: BUPIVACAINE 0.5% W/ EPI (PF) 30 ML VIAL INJ (08:33)
[2020-08-26] MEDS: ACETAMINOPHEN IV 1,000 MG/100 ML VIAL 400 MG IV (09:15)
--- NOTE | 2020-08-26 10:08 | PM.GYNOP.1 ---
Operative Date/Time/Diagnoses Date of procedure: 08/26/20 Time of procedure: 10:08 Pre-op diagnosis: Menometrorrhagia Anemia Post-op diagnosis: same Procedure & Clinicians Procedure: Procedures Operation Date: 08/26/20 07:45 Actual Procedures Side Surgeon p Laparoscopic Supracervical Hysterectomy W/ Right Salpingo-oophorectomy & Left Salpingectomy Maryan Westfall MD Indications: Menometrorrhagia Anemia Surgeon: Maryan Westfall [employer] Interpreter: Olga Lidia Phillips Anesthesia Type: General Operative Notes Findings: Ten week size uterus Right 3 cm paratubal cyst Normal ovaries bilaterally Normal left tube Closure Type: primary Specimen(s): left tube, right tube and uterus Applied: catheter (Removed at the end of the case) Estimated blood loss (mL): 100 Blood products transfused: none Procedure in detail: The patient was taken to the operating room where she was placed in the dorsal supine position. After adequate general endotracheal anesthesia was achieved, she was placed in the dorsal lithotomy position, and prepped and draped in the usual sterile fashion. A timeout was performed. A bivalve speculum was placed into the vagina and the anterior lip of the cervix grasped with a single-tooth tenaculum. The cervical os was sequentially dilated until the ZUMI uterine manipulator could pass easily into the endometrial cavity. The single-tooth tenaculum was removed from the anterior lip of the cervix, and the bivalve speculum was removed from the vagina. Attention was then turned to the abdomen where 6 mL of half percent Marcaine with epinephrine were injected in the umbilical fold. A 5 mm incision was made. The Verhees needle was placed into the peritoneal cavity, and its placement confirmed by aspiration and drop test. The Verhees needle was removed. A 5 mm trocar was placed without difficulty. 2 other incisions were made midway between the pubic symphysis and umbilicus after 5 mL of half percent Marcaine with epinephrine were injected. These were 5 mm incisions. Two 5 mm trochars were placed under direct visualization. The right tube was grasped with an atraumatic grasper. Using the plasma kinetic with settings of 40 W the mesosalpinx was cauterized and cut all the way down to the cornua of the uterus. The cornua of the uterus was then grasped with an atraumatic grasper. The utero-ovarian ligaments were cauterized and cut. The round ligament and broad ligament was cauterized and cut with plasma kinetic. Hemostasis was achieved. The bladder flap was created using the plasma kinetic with cautery and cut mcc across. The uterine arteries on the right side were extensively cauterized with plasma kinetic. All of this was repeated on the left side. The remainder of the bladder flap was created using the plasma kinetic, and the bladder taken down off the lower uterine segment and cervix. There were some filmy adhesions between the uterus and bladder and these were taken down. Using the Endoloop, the cervix was amputated from the uterus 2 cm above the uterosacral ligaments, after the ZUMI uterine manipulator was removed from the uterus. There was a small amount of bleeding noted from the posterior and right edge of the cervix, and this was cauterized for hemostasis. A sponge stick was placed into the vagina. The endocervical canal was extensively cauterized. 6 mL of half percent Marcaine with epinephrine were injected above the pubic symphysis. A 12 mm trocar was placed. An Endobag was placed through the suprapubic trocar and the uterus placed into the Endobag. The trocar was removed. The edges of the endobag were pulled up through the incision. The fascial incisions were extended bilaterally with the Britt scissors. The Devaughn placed into the endobag. The uterus was hand morcellated in approximately 15pieces. The Endobag and Devaughn were removed from the peritoneal cavity. The pelvis was copiously irrigated with warm normal saline. No bleeding was noted. The instruments were removed from the abdomen. The CO2 was allowed to escape. The suprapubic incision was closed on the fascia with 0 Vicryl. All of the incisions were closed with 4-0 Biosyn in a subcuticular fashion. The moistened sponge stick was removed from the vagina. Sponge, lap, and instrument counts were correct x-2. The patient tolerated the procedure well, was taken to PACU in stable condition. Complications: none Post-operative Condition: stable Disposition: PACU Plan for aftercare: Home after recovery
[2020-08-26] MEDS: OXYCODONE IR 5 MG TABLET PO (10:24)
--- NOTE | 2020-08-26 10:47 | SUR.PHASEII ---
Assumed care of pt, abdomen with puncture sites c/d/i. peripad present, c/d/i. Denies nausea, states pain tolerable. Pt stated I may be here a while, I am exhausted.
--- NOTE | 2020-08-26 11:46 | SUR.PHASEII ---
brought to bedside, supportive, Dr. Westfall spoke with pt. Report to [place].
--- NOTE | 2020-08-26 12:32 | SUR.PHASEII ---
Assumed care back from LUZ MARIA Downing, pt had been up to BR, steady when up, voided 250mls urine, now ok for d/c. D/c instructions discussed with both pt and her significant other, both voiced an understanding. Dressing remains C/D/I with no drainage on talat pad.
--- NOTE | 2020-08-26 12:37 | SUR.PHASEII ---
Pt left when ready and left in stable condition.
== END 2020-08-26 12:40 | disposition home or self-care (01) ==
LOC: OR 07:31 → AC 09:52
PROVIDERS: Admitting Provider Anesthesiology; PCP Family Medicine; Referring Provider Obstetrics & Gynecology; Visit Provider Obstetrics & Gynecology
PROC: 0UT94ZL Resection of Uterus, Supracervical, Percutaneous Endoscopic Approach (ICD-10-PCS; CPT 58542; principal; 2020-08-26 07:45)
DX: N83.8 Other noninflammatory disorders of ovary, fallopian tube and broad ligament (principal); E03.9 Hypothyroidism, unspecified; D64.9 Anemia, unspecified
CPT/HCPCS: 58542; J0131; J0690; J1100; J1885; J2250; J2405; J2704; J2795; J3010; J8501

== ENCOUNTER → 2020-10-05 14:11 | Outpatient (CLI) | payer OTHER, MEDICAID, SELFPAY ==
[2020-10-05 15:05] LABS: COVID19 -Nasal RAPID POSITIVE (Negative)
== END ==
PROVIDERS: PCP Family Medicine; Visit Provider Physician Assistant
DX: U07.1 COVID-19 (principal)
CPT/HCPCS: 87635

== ENCOUNTER 2020-11-13 11:00 | Outpatient (RCR) | payer OTHER, MEDICAID, SELFPAY ==
--- NOTE | 2020-11-07 09:46 | PT.OIE ---
Current Diagnoses Benign paroxysmal vertigo, left ear (11/07/20) Dizziness and giddiness (11/07/20) Past Medical History (Last Updated 08/21/20 @ 08:34 by Daisy Torres RN) Achilles tendinitis of right lower extremity Endometrial hyperplasia Menorrhagia Right ovarian cyst Seizures Past Surgical History (Last Reviewed 01/30/20 @ 18:07 by Michael Min DO) Status post section (08/18/17) Status post tubal ligation (08/18/17) Visit Care Team Role Provider Type Michael Min DO Attending Provider Physician Primary Care Provider Referring Provider Specialty: [facility] Address: [address] [place] [address] Email: [email or web address] [facility] Initial Evaluation PT-OP-A Visit Information Start: 11/07/20 07:32 Freq: Status: Active Protocol: Document 11/07/20 07:30 AMB (Rec: 11/07/20 10:51 AMB [email or web address]) Out-Patient Physical Therapy Visit Information Visit Information Visit Type Initial Evaluation Visit Start Time 07:30 Visit Stop Time 08:15 Total Visit Minutes 45 Visit Number 1 PT-OP-B Current Condition Start: 11/07/20 07:32 Freq: Status: Active Protocol: Document 11/07/20 07:30 AMB (Rec: 11/07/20 07:41 AMB [id number]) Current Condition History of Current Condition Onset Date 2 weeks ago Current Complaints dizziness History of Current Condition Antionette is concerned BPPV has returned. She had it two previous times, the first time she had a seizure, and fell and hit her head in 2013. Then 2.5 weeks ago and hit head on edge of cupboard, then kind of blacked out and fell down, and was concerned she had a seizure again, but realized she didn't. Is concerned about BPPV, because has had that before. 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 Therapy/Recovery PT-OP-C Subjective Start: 11/07/20 07:32 Freq: Status: Active Protocol: Document 11/07/20 07:30 AMB (Rec: 11/09/20 09:46 AMB [email or web address]) Patient Questionnaires Dizziness Handicap Inventory DHI Score 34 DHI Functional Impairment 20 to 39% Impaired (Score 20- 39) PT-OP-O Vestibular Start: 11/07/20 09:58 Freq: Status: Active Protocol: Document 11/07/20 07:30 AMB (Rec: 11/07/20 10:51 AMB [email or web address]) Vestibular Assessment Visual Testing Smooth Pursuits Horizontal WFL Smooth Pursuits Vertical WFL Saccades Horizontal WFL Saccades Vertical WFL Gaze Evoked Nystagmus With Fixation Negative Thrust Head Negative Convergence Test WNL Positional Testing Angelina-Hallpike Positive Left PT-OP-T Assessment and Plan Start: 11/07/20 07:32 Freq: Status: Active Protocol: Document 11/07/20 07:30 AMB (Rec: 11/09/20 09:46 AMB [email or web address]) Physical Therapy Assessment Rehab Potential Rehabilitation Potential Excellent Evaluation Complexity Number of Personal Factors/Comorbidities 1-2 Number of Body Systems Impaired 1-2 Clinical Presentation at Evaluation Stable Impairments Impairments Vestibular Goals One Impairment Dizziness Short Term Goal (STG) Antionette will not have dizziness or nystagmus with [place]- hallpike. STG Duration 4 weeks Mcfp Goal (LTG) Antionette will bend forward and look up without dizziness. LTG Duration 8 weeks Assessment Summary Assessment Antionette attends PT with a 2 week history of spinning with lying down in bed, rolling to the left, and bending forward and looking up. She showed torsional nystagmus with left Angelina-Hallpike and was treated with 2 Roro maneuvers, the second of which did not illicit symptoms. She is scheduled for follow up next week and was educated in post maneuver precautions. Given that this is her 3rd bout of BPPV in less than 10 years, she was educated that it is likely she will have recurrent spells in the future. Could consider education in self Roro at next visit. Physical Therapy Plan Frequency and Duration Frequency of Treatment 1x/Week Duration of Treatment 4 weeks Plan of Care Start Date 11/07/20 Plan of Care End Date 12/05/20 Therapeutic Interventions Therapeutic Interventions Canalithic Repositioning, Neuromuscular Re-education, Therapeutic Activities, Therapeutic Exercises, Vestibular Rehabilitation Next Visit Focus/Plan Next Note Type Treatment Note Next Visit Plan Reassess Angelina-Hallpike
--- NOTE | 2020-11-07 09:47 | PT.OPPOC ---
Physical, Occupational & Speech Therapy At [facility] Current Diagnoses Benign paroxysmal vertigo, left ear (11/07/20) Dizziness and giddiness (11/07/20) Visit Care Team Role Provider Type Michael Min DO Attending Provider Physician Primary Care Provider Referring Provider Specialty: [facility] Practice Address: [address] [place] [address], [facility] Email: [email or web address] Plan Of Care PT-OP-T Assessment and Plan Start: 11/07/20 07:32 Freq: Status: Active Protocol: Document 11/07/20 07:30 AMB (Rec: 11/09/20 09:46 AMB [email or web address]) Physical Therapy Assessment Rehab Potential Rehabilitation Potential Excellent Evaluation Complexity Number of Personal Factors/Comorbidities 1-2 Number of Body Systems Impaired 1-2 Clinical Presentation at Evaluation Stable Impairments Impairments Vestibular Goals One Impairment Dizziness Short Term Goal (STG) Antionette will not have dizziness or nystagmus with Angel[place]- hallpike. STG Duration 4 weeks In Tube Conversion Technician Goal (LTG) Antionette will bend forward and look up without dizziness. LTG Duration 8 weeks Assessment Summary Assessment Antionette attends PT with a 2 week history of spinning with lying down in bed, rolling to the left, and bending forward and looking up. She showed torsional nystagmus with left Angelina-Hallpike and was treated with 2 Roro maneuvers, the second of which did not illicit symptoms. She is scheduled for follow up next week and was educated in post maneuver precautions. Given that this is her 3rd bout of BPPV in less than 10 years, she was educated that it is likely she will have recurrent spells in the future. Could consider education in self Roro at next visit. Physical Therapy Plan Frequency and Duration Frequency of Treatment 1x/Week Duration of Treatment 4 weeks Plan of Care Start Date 11/07/20 Plan of Care End Date 12/05/20 Therapeutic Interventions Therapeutic Interventions Canalithic Repositioning, Neuromuscular Re-education, Therapeutic Activities, Therapeutic Exercises, Vestibular Rehabilitation Next Visit Focus/Plan Next Note Type Treatment Note Next Visit Plan Reassess Angelina-Hallpike Plan of Care Dates Plan of Care Start Date 11/07/20 Plan of Care End Date 12/05/20 Electronically Signed by: Roslyn Broderick, PT 11/09/20 0947 Please Sign and Return: I have reviewed this Plan of Care and certify that the skilled therapy services above are required to meet the patient?s needs. Physician Signature Date Printed Name and Credentials Clinical Instructor Signature Printed Name and Credentials
--- NOTE | 2020-11-13 11:51 | PT.OTN ---
Current Diagnoses Benign paroxysmal vertigo, left ear (11/13/20) Dizziness and giddiness (11/13/20) Physical Therapy Treatment Note PT-OP-A Visit Information Start: 11/07/20 07:32 Freq: Status: Active Protocol: Document 11/13/20 11:01 AMB (Rec: 11/13/20 11:51 AMB [id number]) Out-Patient Physical Therapy Visit Information Visit Information Visit Type Treatment Note Visit Start Time 11:00 Visit Stop Time 11:45 Total Visit Minutes 45 Visit Number 2 PT-OP-B Current Condition Start: 11/07/20 07:32 Freq: Status: Active Protocol: Document 11/07/20 07:30 AMB (Rec: 11/07/20 07:41 AMB [id number]) Current Condition History of Current Condition Onset Date 2 weeks ago Current Complaints dizziness History of Current Condition Antionette is concerned BPPV has returned. She had it two previous times, the first time she had a seizure, and fell and hit her head in 2013. Then 2.5 weeks ago and hit head on edge of cupboard, then kind of blacked out and fell down, and was concerned she had a seizure again, but realized she didn't. Is concerned about BPPV, because has had that before. 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 PT-OP-O Vestibular Start: 11/07/20 09:58 Freq: Status: Active Protocol: Document 11/07/20 07:30 AMB (Rec: 11/07/20 10:51 AMB [email or web address]) Vestibular Assessment Visual Testing Smooth Pursuits Horizontal WFL Smooth Pursuits Vertical WFL Saccades Horizontal WFL Saccades Vertical WFL Gaze Evoked Nystagmus With Fixation Negative Thrust Head Negative Convergence Test WNL Positional Testing [place]-Hallpike Positive Left PT-OP-Q Treatments Start: 11/07/20 07:32 Freq: Status: Active Protocol: Document 11/13/20 11:01 AMB (Rec: 12/23/20 11:51 AMB [id number]) Neuro Re-Education Treatment Other Activities 1 Comments Rechecked [place]-Hallpike bilat, rechecked supine roll test no nystagmus, pt did feel slightly nauseous with L Angelina- Hallpike but no spinning and feels much better than last week, did trainin self Roro with written handout. PT-OP-T Assessment and Plan Start: 11/07/20 07:32 Freq: Status: Active Protocol: Document 11/13/20 11:01 [facility] (Rec: 11/13/20 11:51 AMB [id number]) Physical Therapy Assessment Goals One Impairment Dizziness Short Term Goal (STG) Antionette will not have dizziness or nystagmus with Angelina- hallpike. STG Duration MET [facility] Goal (LTG) Antionette will bend forward and look up without dizziness. LTG Duration PARTIALLY MET- mild feeling off with looking up Assessment Summary Assessment Antionette appears to no longer have BPPV, encouraged to return to normal activities and call office if any spinning dizziness returns.
--- NOTE | 2020-12-04 16:07 | PT.OPDS ---
Current Diagnoses Benign paroxysmal vertigo, left ear (11/13/20) Dizziness and giddiness (11/13/20) Visit Care Team Role Provider Type Michael Min DO Attending Provider Physician Primary Care Provider Referring Provider Specialty: [facility] Address: [address] [place] [address], [facility] Email: [email or web address] Visit Number Visit Number 2 Discharge Summary PT-OP-B Current Condition Start: 11/07/20 07:32 Freq: Status: Active Protocol: Document 11/07/20 07:30 AMB (Rec: 11/07/20 07:41 AMB [id number]) Current Condition History of Current Condition Onset Date 2 weeks ago Current Complaints dizziness History of Current Condition Antionette is concerned BPPV has returned. She had it two previous times, the first time she had a seizure, and fell and hit her head in 2013. Then 2.5 weeks ago and hit head on edge of cupboard, then kind of blacked out and fell down, and was concerned she had a seizure again, but realized she didn't. Is concerned about BPPV, because has had that before. 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 PT-OP-O Vestibular Start: 11/07/20 09:58 Freq: Status: Active Protocol: Document 11/07/20 07:30 AMB (Rec: 11/07/20 10:51 AMB [email or web address]) Vestibular Assessment Visual Testing Smooth Pursuits Horizontal WFL Smooth Pursuits Vertical WFL Saccades Horizontal WFL Saccades Vertical WFL Gaze Evoked Nystagmus With Fixation Negative Thrust Head Negative Convergence Test WNL Positional Testing Angelina-Hallpike Positive Left PT-OP-T Assessment and Plan Start: 11/07/20 07:32 Freq: Status: Active Protocol: Document 12/04/20 16:05 AMB (Rec: 12/04/20 16:07 AMB [email or web address]) Physical Therapy Assessment Goals One Impairment Dizziness Short Term Goal (STG) Antionette will not have dizziness or nystagmus with [place]- hallpike. STG Duration MET Nursing Home Goal (LTG) Antionette will bend forward and look up without dizziness. LTG Duration PARTIALLY MET- mild feeling off with looking up Assessment Summary Assessment Antionette did not show any more signs of BPPV at her last visit, while she was very positive at eval. She has not contacted this office in the last 3 weeks, therefore she is discharged. If she has recurrent BPPV which is possible considering that she has had it multiple times now, she would be welcome to return with a new referral. Physical Therapy Plan Discharge Physical Therapy Discharge Reasons Goals Met
== END 2020-12-11 08:52 ==
LOC: PHYS 11:00
PROVIDERS: PCP Family Medicine; Referring Provider Family Medicine; Visit Provider Family Medicine
DX: H81.12 Benign paroxysmal vertigo, left ear (principal)
CPT/HCPCS: 97112; 97161

== ENCOUNTER → 2020-11-29 09:40 | Outpatient (CLI) | payer OTHER, MEDICAID, SELFPAY ==
[2020-11-29] MEDS: COVID-19 VACC(MODERNA-1)/PF 100 MCG/0.5 ML VIAL IM (09:47)
== END ==
PROVIDERS: PCP Family Medicine; Visit Provider Internal Medicine
DX: Z23 Encounter for immunization (principal)
CPT/HCPCS: 0011A; 91301

== ENCOUNTER → 2020-12-27 14:19 | Outpatient (CLI) | payer OTHER, MEDICAID, SELFPAY ==
[2020-12-27] MEDS: COVID-19 VACC #2, MRNA(MOD) 100 MCG/0.5 ML VIAL IM (14:27)
== END ==
PROVIDERS: PCP Family Medicine; Visit Provider Internal Medicine
DX: Z23 Encounter for immunization (principal)
CPT/HCPCS: 0012A; 91301

== ENCOUNTER → 2021-05-09 13:14 | Outpatient (CLI) | payer OTHER, MEDICAID, SELFPAY ==
[2021-05-09 13:39] LABS: COVID19 -Nasal RAPID Negative (Negative)
== END ==
PROVIDERS: PCP Family Medicine; Visit Provider Physician Assistant
DX: J02.9 Acute pharyngitis, unspecified (principal); R05 Cough; R09.81 Nasal congestion; Z20.822 Contact with and (suspected) exposure to COVID-19
CPT/HCPCS: 87635

== ENCOUNTER → 2021-07-31 17:08 | Outpatient (CLI) | payer OTHER, MEDICAID, SELFPAY ==
[2021-07-31 19:03] LABS: Thyroid Stimulating Hormone < 0.015 uIU/mL (0.47-4.68)
== END ==
PROVIDERS: PCP Family Medicine; Referring Provider Obstetrics & Gynecology; Visit Provider Obstetrics & Gynecology
DX: E03.9 Hypothyroidism, unspecified (principal)
CPT/HCPCS: 36415; 84439; 84443

== ENCOUNTER → 2021-08-08 12:53 | Outpatient (CLI) | payer OTHER, MEDICAID, SELFPAY ==
[2021-08-08 16:41] LABS: COVID19 -Nasal RAPID Negative (Negative)
== END ==
PROVIDERS: PCP Family Medicine; Visit Provider Nurse Practitioner
DX: Z20.822 Contact with and (suspected) exposure to COVID-19 (principal)
CPT/HCPCS: 87635

== ENCOUNTER → 2021-08-12 13:41 | Outpatient (CLI) | payer OTHER, MEDICAID, SELFPAY ==
[2021-08-12 14:19] LABS: COVID19 -Nasal RAPID Negative (Negative)
== END ==
PROVIDERS: PCP Family Medicine; Visit Provider Physician Assistant
DX: Z20.822 Contact with and (suspected) exposure to COVID-19 (principal)
CPT/HCPCS: 87635

== ENCOUNTER → 2021-08-15 12:02 | Outpatient (CLI) | payer OTHER, MEDICAID, SELFPAY ==
[2021-08-15 13:55] LABS: COVID19 -Nasal RAPID Negative (Negative)
== END ==
PROVIDERS: PCP Family Medicine; Visit Provider Nurse Practitioner
DX: Z20.822 Contact with and (suspected) exposure to COVID-19 (principal)
CPT/HCPCS: 87635

== ENCOUNTER → 2021-08-28 | Outpatient (CLI) | payer OTHER, MEDICAID, SELFPAY | PROVIDERS: PCP Family Medicine; Referring Provider Internal Medicine; Visit Provider Internal Medicine | DX: Z23 Encounter for immunization (principal) | CPT/HCPCS: 90471; 90686 ==

== ENCOUNTER → 2021-09-26 10:07 | Outpatient (CLI) | payer OTHER, MEDICAID, SELFPAY ==
[2021-09-26] MEDS: COVID-19 VACC #3, MRNA(MOD) 50 MCG/0.25 ML VIAL IM (10:12)
== END ==
PROVIDERS: PCP Family Medicine; Visit Provider Internal Medicine
DX: Z23 Encounter for immunization (principal)
CPT/HCPCS: 0013A; 91301

== ENCOUNTER → 2022-08-10 18:08 | Outpatient (CLI) | payer OTHER, MEDICAID, SELFPAY | PROVIDERS: PCP Family Medicine; Visit Provider Student in an Organized Health Care Education/Training Program | DX: J02.9 Acute pharyngitis, unspecified (principal) | CPT/HCPCS: 87070 ==

== ENCOUNTER → 2022-08-28 16:53 | Outpatient (CLI) | payer OTHER, MEDICAID, SELFPAY | PROVIDERS: PCP Family Medicine; Referring Provider Internal Medicine; Visit Provider Internal Medicine | DX: Z23 Encounter for immunization (principal) | CPT/HCPCS: 90471; 90686 ==

== ENCOUNTER → 2023-08-26 14:01 | Outpatient (CLI) | payer OTHER, SELFPAY | PROVIDERS: PCP Family Medicine; Referring Provider Family Medicine; Visit Provider Family Medicine | DX: Z23 Encounter for immunization (principal) | CPT/HCPCS: 90471; 90686 ==

== ENCOUNTER → 2023-10-20 17:45 | Outpatient (CLI) | payer OTHER, SELFPAY ==
--- NOTE | 2023-10-20 17:48 | DI.MG.S_ITS ---
BILATERAL DIGITAL SCREENING MAMMOGRAM 3D/2D WITH CAD: 10/20/2023 CLINICAL: Baseline exam. Routine screening. Family history of breast cancer. No prior exams were available for comparison. There are scattered areas of fibroglandular density in both breasts (category b / 25%-50% glandular tissue). Current study was also evaluated with a Computer Aided Detection (CAD) system. No significant masses, calcifications, or other findings are seen in either breast. IMPRESSION: NEGATIVE There is no mammographic evidence of malignancy. A 1 year screening mammogram is recommended. Based on the Tyrer Cuzick model (a risk assessment model) the patient's lifetime risk is 7.6% and her 10 year risk is 1.7%. According to the ACR, ACS, and NCCN guidelines, an annual breast MRI exam along with mammogram is recommended if the patient's lifetime risk is 20% or greater. This exam was interpreted at Station ID: [id number]. NOTE: For mammograms, a report in lay terms will be sent to the patient. Approximately 15% of breast malignancies will not be visualized mammographically. In the management of a palpable breast mass, a negative mammogram must not discourage biopsy of a clinically suspicious lesion. Electronically Signed By: Yasmani zuñiga/annie:10/21/2023 07:31:32 letter sent: Normal Exam ACR BI-RADS Category 1: Negative [id number]
== END ==
PROVIDERS: PCP Family Medicine; Referring Provider Family Medicine; Visit Provider Family Medicine
DX: Z12.31 Encounter for screening mammogram for malignant neoplasm of breast (principal); Z80.3 Family history of malignant neoplasm of breast
CPT/HCPCS: 77063; 77067

== ENCOUNTER → 2023-11-08 07:02 | Outpatient (CLI) | payer OTHER, SELFPAY ==
[2023-11-08 09:11] LABS: Add Manual Diff / Slide Review NO; Basophils Absolute Auto 0 /uL (0-100); Basophils Percent Auto 0.7 % (0-2); Eosinophils Absolute Auto 100 /uL (0-450); Eosinophils Percent Auto 1.6 % (2-4); Hematocrit 39.8 % (36-46); Hemoglobin 13.5 g/dL (12.0-16.0); Lymphocytes Absolute Auto 2500 /uL (1100-4500); Lymphocytes Percent Auto 33.2 % (25-40); Mean Corpuscular Hemoglobin 31.1 PG (26-34); Mean Corpuscular Volume 91.7 fL (80-100); Monocytes Absolute Auto 800 /uL (0-900); Monocytes Percent Auto 10.1 % (3-14); Neutrophils Absolute Auto 4100 /uL (1500-7000); Neutrophils Percent Auto 54.4 % (50-75); Platelet Count 325 X10^3/uL (150-400); Red Blood Cell Count 4.34 X10^6/uL (4.0-5.2); Red Cell Distribution Width 13.4 % (11.6-14.8); White Blood Cell Count 7.5 X10^3/uL (4.5-11.0)
[2023-11-08 09:40] LABS: Alanine Aminotransferase 22 IU/L (<35); Albumin 3.9 g/dL (3.5-5.0); Albumin Globulin Ratio 1.2 (1.0-2.8); Alkaline Phosphatase 50 U/L (38-126); Aspartate Aminotransferase 22 IU/L (14-36); BUN Creatinine Ratio 14.6 (6-22); Bilirubin Total 0.5 mg/dL (0.2-1.3); Blood Urea Nitrogen 13 mg/dL (7-17); Calcium 9.6 mg/dL (8.4-10.2); Carbon Dioxide 26 mmol/L (22-32); Chloride 103 mmol/L (98-107); Cholesterol 202 mg/dL (140-199); Estimated Glomerular Filt Rate > 60 mL/min (>60); Globulin 3.2 g/dL (1.7-4.1); Glucose 96 mg/dL (70-100); HDL Cholesterol 44 mg/dL (40-60); HEMOLYSIS < 15 (0-50); LDL Cholesterol Calculated 133 mg/dL (<100); Potassium 3.9 mmol/L (3.4-5.1); Sodium 135 mmol/L (137-145); Total Protein 7.1 g/dL (6.3-8.2); Triglycerides 124 mg/dL (35-150)
[2023-11-08 20:49] LABS: Free T4, Direct Thyroxine 0.71 ng/dL (0.78-2.19)
== END ==
PROVIDERS: PCP Family Medicine; Referring Provider Family Medicine; Visit Provider Family Medicine
DX: Z00.00 Encounter for general adult medical examination without abnormal findings (principal)
CPT/HCPCS: 36415; 80053; 80061; 84439; 84443; 85025

== ENCOUNTER → 2023-11-16 13:30 | Outpatient (CLI) | payer OTHER, SELFPAY ==
[2023-11-16 15:49] LABS: COVID-19 CEPHEID PCR (VTM/NP) Negative (Negative)
== END ==
PROVIDERS: PCP Family Medicine; Visit Provider Family Medicine
DX: Z20.822 Contact with and (suspected) exposure to COVID-19 (principal)
CPT/HCPCS: 87635